=== PATIENT | female | born 1980 | race Caucasian/White ===

== ENCOUNTER 2020-06-29 17:50 | Emergency (ER) | payer OTHER, SELFPAY ==
[2020-06-29 17:51] VITALS: BP 135/88; PULSE 85; RESP 18; TEMP 36.6; O2SAT 100
--- NOTE | 2020-06-29 18:24 | ED.GENADULT ---
HPI - General Adult General Chief complaint: Recheck/Abnormal Lab/Rx Stated complaint: med refill Time Seen by Provider: 06/29/20 18:24 Source: patient Mode of arrival: ambulatory Limitations: no limitations History of Present Illness HPI narrative: Patient came to the emergency room for Synthroid refill, and does not have a family physician. Patient denying any symptoms. Related Data Allergies Allergy/AdvReac Type Severity Reaction Status Date / Time No Known Allergies Allergy Unverified 08/29/18 14:53 Review of Systems Review of Systems: Narrative: CONSTITUTIONAL: Denies fever, chills, or sweats. EYES: Denies visual changes, redness, or discharge. ENT: Denies rhinorrhea, congestion, sore throat, or otalgia. CARDIOVASCULAR: Denies chest pain, palpitations, or edema. RESPIRATORY: Denies cough or dyspnea. GASTROINTESTINAL: Denies abdominal pain, nausea, vomiting, or diarrhea. GENITOURINARY: Denies dysuria or hematuria. SKIN: Denies rash or itching. MUSCULOSKELETAL: Denies back pain, joint pain, or myalgia. NEUROLOGIC: Denies headache, numbness, or weakness. PSYCHIATRIC: Denies anxiety or depression. [facility] Past Medical History Medical History Hypothyroidism Social History Social History Gender identity (if verbalized by the patient): Female Exam Narrative: Exam Narrative: General appearance: Well-developed, well-nourished Skin: Normal color Head: Normocephalic, nontraumatic Eyes: Clear conjunctiva ENT: Oropharynx normal, ears normal, nose normal Neck: Supple, nontender Chest and respiratory: Airway patent, no respiratory distress, no accessory muscle use Heart: Regular rate/rhythm Abdomen: Soft, nontender, no organomegaly, quiet bowel sounds Vascular: Normal peripheral pulses, normal capillary refill. Musculoskeletal: Normal range of motion, nontender back Neurologic: Alert and oriented ?3, [employer] is normal as tested, no gross motor deficit Course Course Emergency Course: Stable Vital Signs Vital signs: Vital Signs Temperature 36.6 C 06/29/20 17:51 Pulse Rate 85 06/29/20 17:51 Respiratory Rate 18 06/29/20 17:51 Blood Pressure 135/88 06/29/20 17:51 Pulse Oximetry 100 06/29/20 17:51 Temperature 36.6 C 06/29/20 17:51 Pulse Rate 85 06/29/20 17:51 Respiratory Rate 18 06/29/20 17:51 Blood Pressure 135/88 06/29/20 17:51 Pulse Oximetry 100 06/29/20 17:51 Medical Decision Making MDM Narrative Medical decision making narrative: Synthroid refill, patient will be provided with the family decision for further evaluation Vital Signs Vital Signs: Vital Signs Temperature 36.6 C 06/29/20 17:51 Pulse Rate 85 06/29/20 17:51 Respiratory Rate 18 06/29/20 17:51 Blood Pressure 135/88 06/29/20 17:51 Pulse Oximetry 100 06/29/20 17:51 Temperature 36.6 C 06/29/20 17:51 Pulse Rate 85 06/29/20 17:51 Respiratory Rate 18 06/29/20 17:51 Blood Pressure 135/88 06/29/20 17:51 Pulse Oximetry 100 06/29/20 17:51 Critical Care Time Critical Care Time Critical Care Time: No Discharge Plan Discharge Clinical Impression: Hypothyroidism Qualifiers: Hypothyroidism type: unspecified Qualified Code(s): E03.9 - Hypothyroidism, unspecified Patient Disposition: Home, Self-Care Condition: Stable Instructions: Hypothyroidism (ED) Additional Instructions: Return if symptoms are worsening , call your family physician for appointment, take Tylenol as as needed for aches and pain, continue home medications. Prescriptions: New levothyroxine [Synthroid] 125 mcg tablet
== END 2020-06-29 18:54 | disposition home or self-care (01) ==
PROVIDERS: Emergency Provider Emergency Medicine
DX: E03.9 Hypothyroidism, unspecified (principal)
CPT/HCPCS: 99283

== ENCOUNTER → 2020-10-05 14:54 | Outpatient (CLI) | payer OTHER, SELFPAY ==
--- NOTE | ~2020-10-05 | MM_ITS ---
EXAMINATION: MM screening kay BI w ninfa HISTORY: Screening TECHNIQUE: Craniocaudal and mediolateral oblique 3-D tomosynthesis images were obtained and synthetic 2-D images were generated. CAD analysis was submitted and interpreted. COMPARISON: No prior mammogram is available for comparison at this institution. BREAST PARENCHYMAL COMPOSITION: The breasts are heterogeneously dense, which may obscure small masses . FINDINGS: There is no evidence of suspicious mass, calcification, or architectural distortion to sugg est malignancy in either breast. There has been no suspicious interval change. IMPRESSION: 1. No mammographic evidence of malignancy. 2. Recommend routine screening mammography in one year. BI-RADS Category 1: Negative Reviewed, dictated and finalized at location A. [facility]
== END ==
PROVIDERS: Visit Provider Obstetrics & Gynecology
DX: Z12.31 Encounter for screening mammogram for malignant neoplasm of breast (principal)
CPT/HCPCS: 77063; 77067